=== PATIENT | female | born 1975 | race Caucasian/White ===

== ENCOUNTER 2018-12-23 12:33 | Emergency (ER) | payer OTHER ==
[2018-12-23] MEDS ORDERED: Mag-Al Plus 1200 MG/1200 MG/120 MG/30 ML UDCUP ONE (13:08)
[2018-12-23] MEDS ORDERED: Lidocaine Viscous Sol 2% 15 ml UD Cup ONE (13:08)
[2018-12-23] MEDS ORDERED: Ondansetron PF 4 MG/2 ML Vial ONE (13:08)
[2018-12-23] MEDS ORDERED: Pantoprazole 40 MG VIAL ONE (13:08)
[2018-12-23] MEDS ORDERED: Morphine 4 MG/ML VIAL ONE (13:08)
[2018-12-23 13:24] LABS: ALT (SGPT) 21 U/L (8-55); AST (SGOT) 35 U/L (5-34); Albumin 3.8 g/dL (3.5-5.0); Alkaline Phosphatase 86 U/L (40-110); Anion Gap 15 mmol/L (10-20); BUN (Urea Nitrogen) 12 mg/dL (7.0-18.7); Bilirubin, Total 0.9 mg/dL (0.2-1.2); Calc. Creatinine Clearance 0 mL/min (70-130); Calcium 9.1 mg/dL (7.8-10.44); Carbon Dioxide 22 mmol/L (22-29); Chloride 107 mmol/L (98-107); Estimated GFR-MDRD 78; Globulin 3.3 g/dL (2.4-3.5); Glucose 106 mg/dL (70-105); Lipase 17 U/L (8-78); Potassium 3.9 mmol/L (3.5-5.1); Protein, Total 7.1 g/dL (6.0-8.3); Sodium 140 mmol/L (136-145)
[2018-12-23 13:26] LABS: #Eosinphils 0.1 thou/uL (0.0-0.7); #Lymphocytes 1.2 thou/uL (1.20-3.40); #Monocytes 0.3 thou/uL (0.11-0.59); #Neutrophils 3.9 thou/uL (1.40-6.50); %Basophils 0.8 % (0.0-1.0); %Lymphocytes 21.3 % (21.0-51.0); %Monocytes 6.2 % (0.0-10.0); %Neutrophils 70.7 % (42.0-75.0); Hemoglobin 10.6 g/dL (12.0-16.0); Hypochromia SLIGHT = 6-15 cells (100X) (0-5/hpf); MDiff Complete? YES; Mean Corpuscular HGB CONC 31.1 g/dL (32.0-36.0); Mean Corpuscular Hemoglobin 24.4 pg (27.0-31.0); Mean Corpuscular Volume 78.4 fL (78.0-98.0); Mean Platelet Volume 7.7 fL (7.4-10.4); Microcytosis SLIGHT = 6-15 cells (100X) (0-5/hpf); Platelet Count 264 thou/uL (130-400); RBC Distribution Width 15.5 % (11.5-14.5); Red Blood Cell (RBC) Count 4.36 mill/uL (4.20-5.40); White Blood Cell (WBC) Count 5.5 thou/uL (4.8-10.8)
[2018-12-23] MEDS ORDERED: Iopamidol 370 76% 100 ML VIAL ONE (14:08)
--- NOTE | 2018-12-23 16:08 | CT ---
CT ABDOMEN AND PELVIS WITH CONTRAST: Date: 12-23-[address] of the abdomen and pelvis was performed for evaluation of abdominal pain with nausea and vo miting. This exam was done after injection of IV contrast. Comparison: 08-07-13 FINDINGS: The lung bases are clear. The liver shows no space occupying lesions. There are some densities in the hepatic hilum that I presume are from the prior cholecystectomy. I presume that they are clips or si milar objects rather than calcifications. I see no dilation of ducts. The spleen is upper normal in s ize measuring 13.8 cm in length. The pancreas, adrenal glands, and abdominal aorta were unremarkable. The right kidney may have a nonobstructing calculus or two in it, but it is difficult to be certain w ith the IV contrast. There is probably a very small cyst in this kidney. The parapelvic cyst was note d on the prior exam in the left kidney. Today it is larger and there appears to be left hydronephrosi s. There is no dilation of the left ureter. No solid renal masses were seen. The appendix was identified and appears normal. Some of the colon, particularly the left colon and si gmoid may have some slight thickening of its gonzales, but there is no inflammatory change around it. No free air or free fluid was seen. There are no dilated loops to suggest obstruction. CT of the pelvis was remarkable for a considerable amount of fluid in the uterine cavity that should be investigated further. A 3.1 cm right ovarian cyst is present. There are no inflammatory changes in the pelvis and no free fluid. IMPRESSION: 1. Borderline splenic size. 2. Calcifications seen in the hepatic hilum that are presumably secondary to the prior surgery rather than recurrent calculi. 3. Parapelvic cyst of the left kidney which is larger and there is now also left hydronephrosis witho ut hydroureter. 4. Equivocal nonobstructing calculi in the right kidney. 5. Some mild prominence of the thickness of the colonic wall, particularly left colon and sigmoid. Th is could easily be from prior inflammatory change as there is no streaking around the colon currently . 6. Considerable amount of fluid in the uterine cavity as well as a 3.1 cm right ovarian cyst. Ultraso und recommended for further evaluation. Findings discussed with Dr. Kumar at 1420 on 12-23-18. POS: HOME
== END 2018-12-23 15:10 | disposition home or self-care (01) ==
LOC: BURERS 12:33
DX: N83.202 Unspecified ovarian cyst, left side (principal); N28.1 Cyst of kidney, acquired; N28.89 Other specified disorders of kidney and ureter
CPT/HCPCS: 74177; 80053; 83690; 84484; 85025; 93005; 96374; 96375; C9113; J2270; J2405; Q9967

== ENCOUNTER 2022-11-02 20:16 | Emergency (ER) | payer OTHER, SELFPAY ==
[2022-11-02] MEDS ORDERED: Morphine 4 MG/ML VIAL ONE ×2 (20:27→21:35)
[2022-11-02] MEDS ORDERED: Ketamine 50 MG/ML (10ML VIAL) ONE (21:32)
[2022-11-02] MEDS ORDERED: Ondansetron PF 4 MG/2 ML Vial ONE ×2 (21:46→23:37)
[2022-11-02] MEDS ORDERED: HYDROcodone/Acetaminophen 5/325 mg Tablet ONE (23:04)
== END 2022-11-02 23:45 | disposition home or self-care (01) ==
LOC: BURERS 20:16
DX: S42.302A Unspecified fracture of shaft of humerus, left arm, initial encounter for closed fracture (principal); W21.09XA Struck by other hit or thrown ball, initial encounter
CPT/HCPCS: 23605; 99152; 99153; J2270; J2405

== ENCOUNTER 2024-10-21 11:51 | Emergency (ER) | payer OTHER ==
[2024-10-21] MEDS ORDERED: Acetaminophen 500 MG TAB ONE (12:10)
[2024-10-21] MEDS ORDERED: Aspirin Chewable 81 MG TAB ONE (12:11)
[2024-10-21 12:24] LABS: #Basophils 0.0 thou/uL (0.0-0.2); #Eosinophils 0.0 thou/uL (0.0-0.7); #Lymphocytes 1.1 thou/uL (1.20-3.40); #Monocytes 0.2 thou/uL (0.11-0.59); #Neutrophils 2.3 thou/uL (1.40-6.50); %Basophils 1.0 % (0.0-1.0); %Eosinophils 0.8 % (0.0-10.0); %Lymphocytes 29.9 % (21.0-51.0); %Monocytes 6.6 % (0.0-10.0); %Neutrophils 61.7 % (42.0-75.0); Hematocrit 36.0 % (36.0-47.0); Hemoglobin 12.9 g/dL (12.0-16.0); Mean Corpuscular Hemoglobin 30.2 pg (27.0-31.0); Mean Corpuscular Volume 84.1 fl (78.0-98.0); Platelet Count 229 10x3/uL (130-400); Red Blood Cell (RBC) Count 4.29 mill/uL (4.20-5.40); White Blood Cell (WBC) Count 3.7 10x3/uL (4.8-10.8)
[2024-10-21 12:38] LABS: ALT (SGPT) 15 U/L (Less than 34); AST (SGOT) 20 U/L (11-34); Albumin 3.9 g/dL (3.1-4.5); Alkaline Phosphatase 55 U/L (40-110); Anion Gap 15 mmol/L (10-20); BUN (Urea Nitrogen) 16 mg/dL (7.0-18.7); Bilirubin, Total 0.7 mg/dL (0.3-1.2); Calc. Creatinine Clearance 0 mL/min (70-130); Calcium 8.7 mg/dL (7.8-10.44); Carbon Dioxide 24 mmol/L (22-29); Chloride 108 mmol/L (98-107); Globulin 2.6 g/dL (2.4-3.5); Glucose 104 mg/dL (70-105); Potassium 3.7 mmol/L (3.5-5.1); Sodium 143 mmol/L (136-145)
[2024-10-21 12:39] LABS: Troponin I Less than 0.010 ng/mL (< 0.028)
== END 2024-10-21 14:12 | disposition home or self-care (01) ==
LOC: BURERS 11:51
DX: I10 Essential (primary) hypertension (principal); R51.9 Headache, unspecified
CPT/HCPCS: 71046; 80053; 83880; 84484; 85025; 93005; 94760